=== PATIENT | female | born 1965 | race Caucasian/White ===

== ENCOUNTER 2023-01-08 09:22 | Outpatient (CLI) | payer OTHER, SELFPAY ==
--- NOTE | 2023-01-08 09:57 | W.ANESCHARGE ---
Anesthesia Charges Start Date/Time Anesthesia Start Date: 01/08/23 Anesthesia Start Time: 10:20 Stop Date/Time Anesthesia Stop Date: 01/08/23 Anesthesia Stop Time: 10:53
--- NOTE | 2023-01-08 10:56 | W.ANESCHARGE ---
Anesthesia Charges Start Date/Time Anesthesia Start Date: 01/08/23 Anesthesia Start Time: 10:20 Stop Date/Time Anesthesia Stop Date: 01/08/23 Anesthesia Stop Time: 10:53
== END 2023-01-08 09:23 | disposition home or self-care (01) ==
LOC: OP CLINIC 09:25
PROVIDERS: PCP Family Medicine; Visit Provider Internal Medicine Gastroenterology
DX: Z12.11 Encounter for screening for malignant neoplasm of colon (principal); K63.5 Polyp of colon; K57.30 Diverticulosis of large intestine without perforation or abscess without bleeding; K62.1 Rectal polyp; Q43.8 Other specified congenital malformations of intestine; Z86.010 Personal history of colon polyps; Z80.0 Family history of malignant neoplasm of digestive organs
CPT/HCPCS: 45380; 45385; 811; 812; 88305; J2704

== ENCOUNTER 2023-04-03 06:16 | Inpatient (IN) | payer OTHER, SELFPAY ==
[2023-04-03] VITALS (33 sets, daily range): BP systolic 96–137; BP diastolic 37–87; PULSE 60–123; RESP 16–18; TEMP 36.4–37.7; O2SAT 92–100; BMI 26.3
[2023-04-03] MEDS: LACTATED RINGERS 1000 ML 1,000 ML 100 ML IV ×2 (07:13→10:38)
[2023-04-03] MEDS: SODIUM CHLORIDE 0.9 % (FLUSH) 10 ML SYRINGE IVF (07:13)
--- NOTE | 2023-04-03 07:30 | CRLHL7_ITS ---
For Patients: As a result of the Century Cures Act, medical imaging exams and procedure reports are released immediately into your electronic medical record. You may view this report before your referring provider. If you have questions, please contact your health care provider. HISTORY: 57-year-old female. Left breast cancer. TECHNIQUE: Following lidocaine injection, 1.03 millicuries of [id number] sulfur colloid was injected in the left breast for sentinel lymph node localization. Images were not obtained. Dictated by Jordan Plascencia MD @ 04/03/2023 9:02:51 AM (Electronically Signed)
[2023-04-03] MEDS: CEFAZOLIN 2 GM INJ IVP (10:05)
[2023-04-03] MEDS: ISOSULFAN BLUE 5 ML VIAL INJECTION (10:20)
--- NOTE | 2023-04-03 11:16 | W.PM.NB ---
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 Images saved: Yes Medications given in 5ml increments after negative aspiration: Marcaine %: 0.25 mL: 30 Needle gauge: 20 and Exparel mL: 10 Needle gauge: 20 Patient tolerated procedure well: Yes Block Charges Block Charge (with Pro Fee): Intercostal Nerve Block Use of Ultrasound Machine for Block: Yes- US Guidance/pain block
--- NOTE | 2023-04-03 11:42 | SUR.OPER ---
Tried to update family per Dr. Rothman. Left a voicemail.
[2023-04-03] MEDS: HYDROmorphone 0.5 mg/0.5 ml inj IVP ×2 (13:47→15:22)
--- NOTE | 2023-04-03 13:50 | W.ANESCHARGE ---
Anesthesia Charges Start Date/Time Anesthesia Start Date: 04/03/23 Anesthesia Start Time: 09:58 Stop Date/Time Anesthesia Stop Date: 04/03/23 Anesthesia Stop Time: 13:44
--- NOTE | 2023-04-03 13:52 | P.GSOP_ITS ---
Operative Note Date of procedure: 04/03/23 Pre-op diagnosis: Invasive lobular carcinoma, left breast Post-op diagnosis: Same Type of Procedure: 1. Bilateral mastectomy 2. Left sentinel lymph node biopsy Indications: Patient is a 57-year-old female with new diagnosis invasive lobular carcinoma, ER positive/FL positive/HER2 negative. Workup demonstrated stage II A disease with the tumor measuring 4.8 cm in size. Different treatment options were reviewed with the patient, please see consultation note for full discussion. Risks and benefits of operative intervention were discussed at length with the patient. Risks included, but were not limited to: Bleeding, infection, risk of damage to surrounding structures, the risk of lymphedema with removal of any nod es, and possible need for an axillary dissection. Risk of injury to surrounding nerves within the axilla or vascular structures which may result in permanent injury. All questions and concerns were addressed with patient agreeing to proceed. Procedure Description: Prior to arrival in the operating room, I injected a radiocolloid tracer to help with identification of the sentinel node. The patient was brought to the operating room and prepped and draped in standard sterile fashion. A timeout was taken for patient safety. I injected 3 cc of l ymphazurin blue in the patient's left breast. The operative field was then prepped and draped in standard fashion. I performed a vertical triangular incision around the nipple on the right breast as marked by Dr. Avina and started by dissecting the subcutaneous tissues using electrocautery. The breast flaps were created circumferentially, dissecting all the breast tissue off of the overlying skin superiorly up to the clavicle, medially to the lateral border of the sternum, laterally out to the latissimus and inferiorly to the inferior aspect of the breast fold. Once flaps had been raised in all 4 directions down to the level of the fascia, the breast was taken off of the chest wall. I included the fascia in my dissection. The underlying pectoralis muscle was inspected and hemostasis was appreciated. The breast was removed through the incision and marked with a stitch at 12 o clock. It was sent to pathology for immediate assessment, with only benign findings. The operative field was gently irrigated. Hemostasis was assured with electrocautery. A 15 Malaysian Maurilio drain was placed a long the lateral wall of the breast and secured with a drain stitch. The incision was brought together in an inverted T shape pattern with interrupted 3-0 Vicryl suture and a running 4-0 Monocryl subcuticular stitch. Attention was then turned to the left breast, which contained the known tumor. I made a triangular incision around the nipple as marked by Dr. Avina and started by dissecting the subcutaneous tissues using electrocautery. The breast flaps were created circumferentially, dissecting all the breast tissue off of the overlying skin superiorly up to the clavicle, medially to the lateral border of the sternum, laterally out to the latissimus and inferiorly to the inferior aspect of the breast fold. The tumor was easily palpated on the anterior surface of the breast tissue at the 2 o'clock position. Once flaps had been raised in all 4 directions down to the level of the fascia, the breast was taken off of the chest wall. I included the fascia in my dissection. The breast was removed through the incision and marked with a short stitch at 12 o clock. It was sent to pathology for immediate assessment. The tumor was able to be readily identified and appeared to be abutting the anterior surface. The recommendation was for additional tissue excision. The area on the anterior flap where the underlying tumor was palpated had been previously marked with a marking pen by myself at the beginning of the procedure. There was very minimal subcutaneous tissue at this area, so the decision was made to remove any remaining subcutaneous tissue and overlying skin. This was sent to pathology as a re-excision for margins, with no obvious tumor seen in the specimen. I then proceeded to take out the sentinel lymph nodes through the left mastectomy incision. Using the Neoprobe I identified the sentinel lymph nodes. All nodes were grossly normal. Nodes were passed off the field as sentinel nodes, 1, and 2 for a frozen evaluation, which came back as no evidence of malignancy. Background counts in the axilla were low. The operative field was then gently irrigated. Hemostasis was assured with electrocautery. Two pieces of Surgicel were placed in the left axilla. A 15 Malaysian Maurilio drain was placed and secured with a drain stitch. The incision was then brought together with interrupted 3 0 Vicryl and running 4-0 Monocryl subcuticular stitch. Due to the skin that required removal the incision was brought together in an X shape. All counts were correct at the end of the case. Patient tolerated procedure well without immediate complication. Patient was transferred to PACU in stable condition. Findings: Bilateral mastectomy. Left breast tumor abutting subcutaneous tissue, requiring re-excision of skin. Margins appeared negative at the end of the case. Two bilateral [address] [place] node biopsy was performed using Isosulfan blue dye and radiotracer; all identified blue and significantly radioactive nodes as well as any additional suspicious nodes were removed. Pathology showed no evidence of malignancy on frozen analysis. Anesthesia: GETA Surgeon: Delphine Rothman MD Estimated blood loss (mL): 50 Additional Specimen Information: 1. Right breast 2. Left breast 3. Left sentinel lymph node 1 4. Left sentinel lymph node 2 Condition: stable Disposition: PACU
[2023-04-03] MEDS: fentaNYL 100 MCG/2 ML inj 50 MCG IVP ×2 (14:02→14:07)
--- NOTE | 2023-04-03 14:42 | PC.NURSE ---
PATIENT REPORTING VERY BAD ITCHING. BENADRYL WAS GIVEN BY BAILEE RIBERA CRNA. ITCHING CONTINUED AND BAILEE RIBERA ASSESSED TO DETERMINE TREATMENT.
--- NOTE | 2023-04-03 14:56 | PC.NURSE ---
BAILEE RIBERA PROVIDED TORDAL DUE TO THE PATIENTS REACTION OF ITCHING TO FENTANYL AND SAID SHE CAN GO TO [facility]. ITCHING HAS SUBSIDED.
--- NOTE | 2023-04-03 15:09 | PC.NURSE ---
COMMUNICATED TO [facility] NURSING THAT ITCHING WAS REPORTED AFTER DILAUDID AND FENTANYL AND ANESTHESIA DID NOT WANT TO GIVE ANY FURTHER NARCOTICS TO PATIENT AND OKAYED TRANSFER TO [facility]. DAIN SCORE MET CRITERIA FOR DISCHARGE.
[2023-04-03] MEDS: LACTATED RINGERS 1000 ML 1,000 ML 125 ML IV (15:22)
--- NOTE | 2023-04-03 16:49 | PM.GSPN ---
Subjective Subjective Date Seen: 04/03/23 Interval history: Patient reporting some pain on the left side of her chest. No pain on the right side. She is having a significant amount of anxiety and shortness of breath when she gets up and moves around. She was able to get up and go to the commode. After coming back from the commode she had a significant amount of swelling in her right breast and her drain on the right side began to rapidly fill. Also reporting a ?Charley horse? in her right calf. Exam Narrative: Exam Narrative: General: Tachycardic, anxious and in acute distress Chest: Left breast flaps viable, incisions clean/dry/intact. Some dark sanguinous output from drain. Right breast with large hematoma, some ecchymoses of the skin flap and drain with significant amount of sanguinous output. Const: Vital Signs, click to edit/add: Vital Signs - 24 hr 04/03/23 07:22 04/03/23 13:40 04/03/23 13:45 Temperature 98.8 F 97.6 F Pulse Rate 72 68 64 Respiratory Rate 16 16 16 Blood Pressure 128/67 131/69 126/74 Pulse Oximetry 96 95 96 Oxygen Delivery Me thod Room Air Room Air 04/03/23 13:50 04/03/23 13:55 04/03/23 14:00 Temperature Pulse Rate 65 60 61 Respiratory Rate 16 16 16 Blood Pressure 124/78 137/65 133/65 Pulse Oximetry 96 96 93 Oxygen Delivery Me thod Room Air 04/03/23 14:05 04/03/23 14:10 04/03/23 14:15 Temperature 98.4 F Pulse Rate 63 68 78 Respiratory Rate 16 16 16 Blood Pressure 123/65 115/68 113/51 L Pulse Oximetry 93 94 92 Oxygen Delivery Me thod Room Air 04/03/23 14:20 04/03/23 14:25 04/03/23 14:30 Temperature Pulse Rate 82 76 76 Respiratory Rate 16 16 16 Blood Pressure 109/60 109/61 108/78 Pulse Oximetry 100 100 95 Oxygen Delivery Me thod Room Air 04/03/23 14:35 04/03/23 14:40 04/03/23 14:45 Temperature 99.8 F H Pulse Rate 78 79 79 Respiratory Rate 16 16 16 Blood Pressure 117/62 118/83 118/83 Pulse Oximetry 95 97 97 Oxygen Delivery Me thod Room Air 04/03/23 14:50 04/03/23 14:55 Temperature 98.6 F Pulse Rate 68 72 Respiratory Rate 16 16 Blood Pressure 111/60 114/62 Pulse Oximetry 98 98 Oxygen Delivery Me thod Room Air Room Air Progress Note: A&P Assessment and plan (1) Postoperative hematoma: Status: Acute Assessment and Plan: Patient is postop day 0 bilateral mastectomy and left sentinel lymph node biopsy. After getting up and moving around she has had rapid development of right-sided hematoma and significant amount of sanguinous output from her drain. Concern for postop hematoma and active bleeding, with recommendations to go to the operating room emergently for washout and evaluation.
--- NOTE | 2023-04-03 18:45 | PM.GSPRC ---
Operative Note Date of procedure: 04/03/23 Pre-op diagnosis: Postop hematoma, right breast Post-op diagnosis: Same Type of Procedure: Incision and drainage right breast hematoma Indications: Patient is a 57-year-old female who went to the operating room for a bilateral mastectomy with left sentinel node for invasive lobular carcinoma. Postoperatively she developed significant swelling and bloody drainage from the right breast, concerning for active bleeding and large hematoma. Risks and benefits of going to the operating room were discussed at length with her and the patient. Risks included, but were not limited to: Bleeding, infection, risk of damage to surrounding structures and possible need for additional procedures. All questions and concerns were addressed with patient agreeing to proceed. Procedure Description: After discussing the risks and benefits of the procedure, the patient signed informed consent.? The operative site was marked and the patient was brought to the operating room and placed on the operating table in supine position.? Care was taken to pad the patient's pressure points.?? The patient was then given sedation by anesthesia.?? The operative site was then prepped and draped in the usual sterile fashion.? A time-out was then performed. Previous incisions to the right breast were incised. The interrupted 3-0 Vicryl subdermal sutures were cut. A large, approximately 300 mL hematoma was within the chest wall. This was evacuated. The cavity was irrigated with warm saline. A small amount of bleeding was seen on and artery on the lateral chest wall. This was ligated with 3-0 Vicryl ties. There were a few points of muscle bleeding, which was controlled with electrocautery. After hemostasis was assured Carmine was placed within the cavity. The 15 Macedonian Maurilio drain was left within the chest wall cavity. The incisions were closed in several layers of interrupted 3 0 Vicryl and running 4-0 Monocryl suture. Steri-Strips were applied over top. Sterile dressings were then applied. ? The patient was then woken and transported to the recovery area in stable condition. ? The patient tolerated the procedure well. Findings: Large hematoma of the right chest. A few areas of muscle bleeding cauterized. One small bleeding vessel on the lateral chest wall was ligated with 3 0 Vicryl. Anesthesia: MAC Surgeon: Delphine Rothman MD Estimated blood loss (mL): 5 Condition: stable Disposition: floor
--- NOTE | 2023-04-03 18:50 | W.ANESCHARGE ---
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
--- NOTE | 2023-04-03 18:54 | CRLHL7_ITS ---
For Patients: As a result of the Century Cures Act, medical imaging exams and procedure reports are released immediately into your electronic medical record. You may view this report before your referring provider. If you have questions, please contact your health care provider. INDICATION: Right calf pain. Post surgery. COMPARISON: None available. FINDINGS: Ultrasound of the venous drainage of the right lower extremity shows no evidence of deep venous thrombosis. There is normal antegrade flow from the posterior tibial and popliteal veins superiorly through the common femoral vein. There is normal augmentation and compressibility of these veins. The left common femoral vein is widely patent. IMPRESSION: No evidence of deep venous thrombosis on ultrasound examination of the right lower extremity. Dictated by Tony Martinez MD @ 04/03/2023 7:48:04 PM (Electronically Signed)
--- NOTE | 2023-04-03 20:14 | PC.NURSE ---
PATIENT RETURNED FROM SURGERY INITIALLY AT 1455. AT THAT TIME PATIENT REPORTING 6-7/10 PAIN TO BILATERAL BREASTS. PATIENT ALSO REPORTING CONTINUED ITCHING, ALTHOUGH IMPROVED. ADMINISTERED DILAUDID 0.5MG IV WITH IMPROVEMENT TO 4/10. AT 1600, PATIENT UP TO [facility] TO VOID AND HAD 400ML URINE OUTPUT WITH BLUE URINE. PATIENT DID REPORT FEELING DIZZY WHEN GETTING UP. WHEN RETURNING TO BED, PATIENT REPORTED HAVING DYSPNEA AND SOB ALONG WITH RIGHT CALF PAIN. DR. MENDIETA TO BEDSIDE AND RIGHT BREAST NOTED TO BE EDEMATOUS AND RIGHT BREAST ELLE FULL OF BLOOD. RIGHT BREAST ELLE HAD MINIMAL BLOOD OUTPUT [facility] DRESSING DC'D PER MD AND PATIENT HAD 200 BLOODY OUTPUT IN 30 MINUTES. AND DAUGHTER AT BEDSIDE AND DR. MENDIETA DISCUSSED RETURNING TO SURGERY TO DRAIN RIGHT BREAST. PATIENT TO SURGERY AT 1710. RETURNED FROM SURGERY AGAIN AT 1840. PATIENT DROWSY AND ON 3L O2 PER NC UPON RETURN. DRESSINGS CDI AND JPx2 INTACT WITH SMALL AMT BLOODY DRAINAGE. RLE ULTRASOUND COMPLETED FOR RIGHT CALF PAIN UPON RETURN FROM SURGERY. DENIED PAIN.
[2023-04-03] MEDS: KETOROLAC 15 MG/ML inj IVP (21:07)
[2023-04-03] MEDS: OXYCODONE 5 MG TABLET PO (21:07)
[2023-04-03] MEDS: MELATONIN 3 MG TABLET 6 MG PO (21:07)
[2023-04-04] MEDS: LACTATED RINGERS 1000 ML 1,000 ML 125 ML IV (01:00)
[2023-04-04] MEDS: OXYCODONE 5 MG TABLET PO ×5 (01:00→14:36)
[2023-04-04] MEDS: MORPHINE 2 MG/ML inj IVP (01:00)
[2023-04-04 03:00] VITALS: BP 116/62; PULSE 72; RESP 16; TEMP 36.8; O2SAT 97
[2023-04-04] MEDS: ACETAMINOPHEN 325 MG TABLET 650 MG PO ×4 (03:15→21:17)
[2023-04-04] MEDS: KETOROLAC 15 MG/ML inj IVP ×2 (03:15→21:17)
[2023-04-04] MEDS: diphenhydrAMINE 50 MG/ML inj IVP ×2 (03:15→10:13)
--- NOTE | 2023-04-04 06:27 | PC.NURSE ---
SHIFT NOTE -: Pt A&O. Dressing/JEFFY wrap to chest is C/D/I, ELLE patent and stripped and drained Q4H. Active ice to sx site. PRN Oxycodone, Acetaminophen, Morphine and Toradol given for pain control with pt reporting adequate relief. PRN Benadryl given x1 for pt report of itching with pt reporting relief. IS to 2500. Weaned from 3L O2 to RA with oxygen saturations in the high 90's. Afebrile. Pt denies SOB, CP and N/V. Up 1 assist to the BR, reports minor dizziness, but steady on her feet.
[2023-04-04 07:00] VITALS: BP 110/49; PULSE 83; RESP 16; TEMP 36.8; O2SAT 98
--- NOTE | 2023-04-04 08:21 | P.GSPN_ITS ---
Subjective Subjective Date Seen: 04/04/23 Interval history: Patient is doing okay this morning. Is having pain in bilateral chest (left greater than right). This is controlled with IV pain medicine, she has not yet tried oral. She has been able to get up and go to the bathroom. She is feeling a little bit dizzy when she gets up. Has been tolerating some p.o. intake without nausea or vomiting. Exam Narrative: Exam Narrative: General: Alert and oriented, no acute distress Respiratory: Equal breath rise bilaterally, maintained on room air CV: Regular rhythm rate, well perfused Breast: Left breast incision with moderate amount of ecchymoses in upper outer quadrant, small amount of ecchymoses in left axilla. No concern for flap necrosis. No undrained hematoma or seroma appreciated. ELLE drain with minimal amount sanguinous output in bulb. Right breast incision with ecchymoses of the superior and inferior flap. Flaps are well perfused. Incision with Steri- Strips in place. No undrained seroma or hematoma. ELLE drain with minimal sanguinous output. Const: Vital Signs, click to edit/add: Vital Signs - 24 hr 04/03/23 13:40 04/03/23 13:45 04/03/23 13:50 Temperature 97.6 F Pulse Rate 68 64 65 Pulse Rate [Left P ulse Oximeter] Respiratory Rate 16 16 16 Blood Pressure 131/69 126/74 124/78 Blood Pressure [Ri ght Arm] Pulse Oximetry 95 96 96 Oxygen Delivery Me thod Room Air Oxygen Flow Rate 04/03/23 13:55 04/03/23 14:00 04/03/23 14:05 Temperature Pulse Rate 60 61 63 Pulse Rate [Left P ulse Oximeter] Respiratory Rate 16 16 16 Blood Pressure 137/65 133/65 123/65 Blood Pressure [Ri ght Arm] Pulse Oximetry 96 93 93 Oxygen Delivery Me thod Room Air Oxygen Flow Rate 04/03/23 14:10 04/03/23 14:15 04/03/23 14:20 Temperature 98.4 F Pulse Rate 68 78 82 Pulse Rate [Left P ulse Oximeter] Respiratory Rate 16 16 16 Blood Pressure 115/68 113/51 L 109/60 Blood Pressure [Ri ght Arm] Pulse Oximetry 94 92 100 Oxygen Delivery Me thod Room Air Oxygen Flow Rate 04/03/23 14:25 04/03/23 14:30 04/03/23 14:35 Temperature Pulse Rate 76 76 78 Pulse Rate [Left P ulse Oximeter] Respiratory Rate 16 16 16 Blood Pressure 109/61 108/78 117/62 Blood Pressure [Ri ght Arm] Pulse Oximetry 100 95 95 Oxygen Delivery Me thod Room Air Oxygen Flow Rate 04/03/23 14:40 04/03/23 14:45 04/03/23 14:50 Temperature 99.8 F H Pulse Rate 79 79 68 Pulse Rate [Left P ulse Oximeter] Respiratory Rate 16 16 16 Blood Pressure 118/83 118/83 111/60 Blood Pressure [Ri ght Arm] Pulse Oximetry 97 97 98 Oxygen Delivery Me thod Room Air Room Air Oxygen Flow Rate 04/03/23 14:55 04/03/23 15:00 04/03/23 15:15 Temperature 98.6 F 98.0 F 98.3 F Pulse Rate 72 84 Pulse Rate [Left P ulse Oximeter] 84 Respiratory Rate 16 16 16 Blood Pressure 114/62 Blood Pressure [Ri ght Arm] 114/56 L 105/87 Pulse Oximetry 98 96 Oxygen Delivery Me thod Room Air Room Air Room Air Oxygen Flow Rate 04/03/23 15:30 04/03/23 15:45 04/03/23 16:15 Temperature 98 F Pulse Rate Pulse Rate [Left P ulse Oximeter] 81 78 123 H Respiratory Rate 16 16 16 Blood Pressure Blood Pressure [Ri ght Arm] 112/47 L 109/55 L 99/58 L Pulse Oximetry 96 97 96 Oxygen Delivery Me thod Room Air Room Air Room Air Oxygen Flow Rate 04/03/23 16:20 04/03/23 16:30 04/03/23 17:00 Temperature 97.8 F Pulse Rate Pulse Rate [Left P ulse Oximeter] 75 80 90 Respiratory Rate 18 16 16 Blood Pressure Blood Pressure [Ri ght Arm] 96/37 L 100/70 100/78 Pulse Oximetry 98 98 98 Oxygen Delivery Me thod Nasal Cannula Nasal Cannula Nasal Cannula Oxygen Flow Rate 2 2 2 04/03/23 18:40 04/03/23 19:00 04/03/23 19:15 Temperature 97.7 F 98.0 F 97.8 F Pulse Rate Pulse Rate [Left P ulse Oximeter] 85 80 70 Respiratory Rate 16 16 16 Blood Pressure Blood Pressure [Ri ght Arm] 110/78 107/59 L 110/66 Pulse Oximetry 100 99 99 Oxygen Delivery Me thod OxyMask Nasal Cannula Nasal Cannula Oxygen Flow Rate 3 3 3 04/03/23 19:30 04/03/23 20:00 04/03/23 20:30 Temperature 97.9 F 97.8 F 98 F Pulse Rate Pulse Rate [Left P ulse Oximeter] 76 84 80 Respiratory Rate 18 18 16 Blood Pressure Blood Pressure [Ri ght Arm] 128/67 119/60 119/67 Pulse Oximetry 98 99 97 Oxygen Delivery Me thod Nasal Cannula Nasal Cannula Nasal Cannula Oxygen Flow Rate 2 2 2 04/03/23 21:00 04/03/23 23:00 04/04/23 03:00 Temperature 97.9 F 98.4 F 98.2 F Pulse Rate Pulse Rate [Left P ulse Oximeter] 79 82 72 Respiratory Rate 16 18 16 Blood Pressure Blood Pressure [Ri ght Arm] 119/73 112/55 L 116/62 Pulse Oximetry 96 97 97 Oxygen Delivery Me thod Nasal Cannula Room Air Room Air Oxygen Flow Rate 2 Labs/Imaging Labs Labs: CBC pending this morning. Progress Note: A&P Assessment and plan (1) Postoperative hematoma: Status: Acute (2) Invasive lobular carcinoma of breast in female: Status: Acute Plan Patient is postop day 1 bilateral mastectomy and left sentinel lymph node biopsy. Her postop course was complicated by bleeding requiring take back to the operating room for irrigation and hemostasis. Overnight drain output has been left breast (35), right breast (50) since midnight of sanguinous output. No concern for ongoing bleeding. She is having pain this morning, this is controlled with IV pain medicine. He has not yet gotten up and walked around. Tolerating regular diet. Will check a CBC this morning, expected to be lower given the bleeding yesterday evening. Patient is not yet ready for discharge, anticipate another day in the hospital. -regular diet -encourage p.o. pain medicine -DC IV fluid -encourage ambulation -SCDs for DVT prophylaxis, no chemical DVT prophylaxis given bleeding risk -continue to monitor ELLE output
[2023-04-04] MEDS: VENLAFAXINE ER 75 MG CAPSULE PO ×2 (08:41→17:35)
[2023-04-04] MEDS: methIMAzole 5 MG TABLET PO (08:41)
[2023-04-04 09:28] LABS: Basophils Absolute Auto 0.02 K/uL (0.00-0.30); Basophils Percent Auto 0.2 % (0.0-3.0); Eosinophils Absolute Auto 0.04 K/uL (0.00-0.50); Eosinophils Percent Auto 0.4 % (0.0-7.0); Hematocrit 32.2 % (33.0-51.0); Hemoglobin* 10.6 gm/dL (12.0-16.0); Immature Granulocytes Abs Auto 0.03 K/uL (0.00-0.30); Immature Granulocytes Pct Auto 0.3 %; Lymphocytes Absolute Auto 3.32 K/uL (0.90-2.90); Lymphocytes Percent Auto 32.4 % (20-44); Mean Corpuscular HGB Conc 33 gm/dL (32-36); Mean Corpuscular Hemoglobin 31 pg (26-34); Mean Corpuscular Volume 94 fL (80-100); Monocytes Percent Auto 5.9 % (0.0-11.0); Neutrophils Absolute Auto 6.24 K/uL (1.7-7.0); Neutrophils Percent Auto 60.8 % (42.0-72.0); Platelet Count* 244 K/uL (140-440); RDW Coefficient of Variation % 12.9 % (11.5-15.5); Red Blood Count 3.44 m/uL (4.00-5.20); White Blood Count* 10.26 K/uL (4.50-11.00)
[2023-04-04 09:49] LABS: Slide Review Reflex No
[2023-04-04 11:00] VITALS: BP 113/63; PULSE 78; RESP 16; TEMP 36.9; O2SAT 98
[2023-04-04] MEDS: DOCUSATE SODIUM 100 MG CAPSULE PO (14:58)
[2023-04-04] MEDS: polyethylene glycoL 3350 17 GM PACK PO (14:58)
[2023-04-04 15:45] VITALS: BP 119/56; PULSE 83; RESP 16; TEMP 36.9; O2SAT 96
--- NOTE | 2023-04-04 15:59 | PC.NURSE ---
End of shift: Patient alert and oriented x4. at bedside most of the day. Dressing/JEFFY wrap to chest is C/D/I, ELEL patent and stripped and drained. Active ice to site. PRN Oxycodone, Acetaminophen and Toradol given for pain control with pt reporting adequate relief. PRN Benadryl given x1 for pt report of itching with pt reporting relief. RA. Afebrile. Pt denies SOB, CP and N/V. Up 1 assist to the BR, reports minor dizziness after taking pain meds, but steady on her feet using standard walker for extra support.
[2023-04-04 19:05] VITALS: BP 103/56; PULSE 81; RESP 16; TEMP 36.5; O2SAT 96
[2023-04-04] MEDS: ALPRAZolam 0.25 MG TABLET PO (21:17)
[2023-04-04] MEDS: MELATONIN 3 MG TABLET 6 MG PO (21:17)
--- NOTE | 2023-04-04 22:12 | PC.NURSE ---
Shift [id number]- Patient complains of dizziness and attributes it to opioid pain medication. Patient declines need for pain medication throughout shift, except for tonight, and she is given non-opioid PRNs- see eMAR. She also states she was not able to sleep last night and talks with RN to make a sleep plan, which is done. ELLE bulb is stripped at 1900- 15mL right, 20mLs left- in adddition to amounts at 1500. She is tolerating eating without issue. Jacob band and bandages remain to chest.
[2023-04-04 23:30] VITALS: BP 108/56; PULSE 76; RESP 16; TEMP 36.6; O2SAT 95
[2023-04-05] MEDS: OXYCODONE 5 MG TABLET PO ×2 (01:58→09:37)
[2023-04-05] MEDS: ACETAMINOPHEN 325 MG TABLET 650 MG PO ×2 (01:59→09:37)
[2023-04-05 02:30] VITALS: BP 122/46; PULSE 70; RESP 16; TEMP 36.6; O2SAT 98
[2023-04-05] MEDS: KETOROLAC 15 MG/ML inj IVP (06:23)
--- NOTE | 2023-04-05 07:02 | PC.NURSE ---
Pt alert and oriented x3. Afebrile. Pt reports 5/10 pain muscular/superficial?chest, pain managed with PRN medications. Pt did report neck discomfort stating, ?my neck feels stiff and sore?, PRN pain medications were given, pillow position was adjusted, neck was inspected and palpated no lumps, bruising, or JVD was noted, and pt denied headache. Pt has two ELLE drains, one on right and left chest both are patent and draining, pt had 30 ml output in right drain and 20 ml in left drain overnight. Pt?s chest dressings CDI. Pt denies chest pain, SOB, and N/V. Pt is up Ind in room,?tolerating a regular diet, and voiding. Pt slept intermittently throughout night. ?
[2023-04-05 08:00] VITALS: BP 124/63; PULSE 77; RESP 16; TEMP 36.4; O2SAT 98
[2023-04-05] MEDS: DOCUSATE SODIUM 100 MG CAPSULE PO (09:36)
[2023-04-05] MEDS: methIMAzole 5 MG TABLET PO (09:36)
[2023-04-05] MEDS: VENLAFAXINE ER 75 MG CAPSULE PO (09:37)
--- NOTE | 2023-04-05 10:05 | P.DS_ITS ---
DS: Providers Provider Date Seen: 04/05/23 Date of admission: 04/03/23 06:16 Primary care physician: Maximus Peng MD Admitting Clinician: Delphine Rothman MD Attending Physician on discharge: Delphine Rothman MD DS: Summary Hospital Course Hospital Course: Patient was admitted to the hospital after a bilateral mastectomy and left sentinel lymph node biopsy for invasive lobular carcinoma. Her postop course was complicated by a hematoma on the right side, requiring return to the operating room and evacuation. Bilateral ELLE drains remained in place. At the time of discharge patient was tolerating a regular diet, ambulating without difficulty and pain was well controlled on oral medications. Time Spent with Patient Time attestation: Total time spent providing and/or coordinating discharge services: Exam Narrative: Exam Narrative: General: Alert and oriented, no acute distress Chest: Right flaps viable, some ecchymoses superior and inferior flaps. Steri- Strips remain in place. No undrained fluid collection within the cavity. ELLE drain remains in place with very minimal serosanguineous output. Left flap appears viable, minimal ecchymoses. ELLE drain with minimal serosanguineous output. Tenderness in the left axilla, no seroma or hematoma appreciated Const: Vital Signs, click to edit/add: Vital Signs - 24 hr 04/04/23 11:00 04/04/23 15:45 04/04/23 19:05 Temperature 98.5 F 98.5 F 97.7 F Pulse Rate [Left P ulse Oximeter] 78 83 81 Respiratory Rate 16 16 16 Blood Pressure [Ri ght Arm] 113/63 119/56 L 103/56 L Pulse Oximetry 98 96 96 Oxygen Delivery Me thod Room Air Room Air 04/04/23 23:30 04/04/23 23:30 04/05/23 02:30 Temperature 97.9 F 97.9 F Pulse Rate [Left P ulse Oximeter] 76 76 70 Respiratory Rate 16 16 16 Blood Pressure [Ri ght Arm] 108/56 L 122/46 L Pulse Oximetry 95 98 Oxygen Delivery Me thod Room Air Room Air Discharge Plan Discharge Disposition: Home, Self-Care Date of Admission: 04/03/23 06:16 Attending Provider on Discharge: Delphine Rothman Primary Care Provider: Maximus Peng Condition: Improved Anticipated Discharge Date/Time: 04/05/23 10:01 Discharge Medications: New oxycodone 5 mg tablet 5 mg PO Q6H PRN (Reason: pain) Qty: 20 0RF senna 8.6 mg capsule 8.6 mg PO DAILY PRN (Reason: constipation) Qty: 90 0RF Continued alprazolam [Xanax] 0.25 mg tablet 0.25 mg PO BID PRN lansoprazole [Prevacid] 30 mg capsule,delayed release(DR/EC) 30 mg PO DAILY PRN melatonin 5 mg capsule 5 mg PO HS venlafaxine [Effexor XR] 75 mg capsule,extended release 24hr 75 mg PO BID methimazole 5 mg tablet 5 mg PO DAILY Discontinued progesterone micronized 100 mg capsule 100 mg PO HS Rx Instructions: off 7 days; repeat cycle estradiol 1 mg tablet 1 mg PO QDAY Rx Instructions: off 1 week; repeat cycle Discharge Orders: Discharge Order (Routine); Ordered 04/05/23 Ordered By: Delphine Rothman Patient Education: Deep Sedation (DC), Incision and Drainage (DC), Post- Operative Instructions: Breast Surgery Additional Instructions: You were prescribed a narcotic pain medication. In addition you may supplement with Tylenol and/or ibuprofen. Be sure to not exceed greater than 4 g of T ylenol in a 24 hour period. While on narcotic pain medicine please take stool softeners. A prescription of stool softeners has been sent to the pharmacy. Stop if having greater than 2 stools per day. He can shower starting today. Do not soak in a bath or swim for 2 weeks. Continue to wear an Jacob wrap as much as possible for the next 2 weeks. Monitor your ELLE drain output. An appointment will be made for follow-up with myself in 1 week to assess if they can be removed at that time. In order for the drains to be removed the output does need to be less than 20 mL per day. Activity Level: No strenuous activity Discharge Diet: Regular Follow Up Appointments: Delphine Rothman MD [Staff Physician] - (Please schedule 04/12/23 clinic) Forms: [employer] Text Info Instructions
[2023-04-05 10:56] VITALS: BP 114/62; PULSE 84; RESP 16; TEMP 36.6
--- NOTE | 2023-04-05 14:17 | PC.NURSE ---
Pt eval by Dr. Rothman. Spouse Terrell vigilant and supportive at bedside. Dressing removed for shower. Replaced dressing, 15 ml from left ELLE and 15ml from right ELLE. IV discontinued. Pt and spouse verbalized understanding of d/c diagnosis, home meds, pain management plan, f/up appt and sx to report urgently to physician. Teaching on dressing change and ELLE drains with spouse. Discharged via w/c to own home with personal belongings @ 1218 with spouse as transportation.
== END 2023-04-05 12:20 | disposition home or self-care (01) | DRG 580 ==
PROVIDERS: Admitting Provider Surgery; PCP Family Medicine; Visit Provider Surgery
PROC: 0HTV0ZZ Resection of Bilateral Breast, Open Approach (ICD-10-PCS; principal; 2023-04-03 09:15)
PROC: 0HTV0ZZ Resection of Bilateral Breast, Open Approach (ICD-10-PCS; 2023-04-03 09:15)
DX: C50.412 Malignant neoplasm of upper-outer quadrant of left female breast (principal); L76.32 Postprocedural hematoma of skin and subcutaneous tissue following other procedure; Z17.0 Estrogen receptor positive status [ER+]; R07.9 Chest pain, unspecified; E05.90 Thyrotoxicosis, unspecified without thyrotoxic crisis or storm; F32.A Depression, unspecified; F41.9 Anxiety disorder, unspecified; G89.18 Other acute postprocedural pain
CPT/HCPCS: 00400; 36415; 38792; 64420; 64421; 76942; 85025; 88305; 88307; 93971; 99140; A9270; A9541; C9290; J0330; J0690; J1100; J1170; J1200; J1885; J2270; J2310; J2405; J2704; J2710; J3010; J3490; J7120

== ENCOUNTER 2023-05-22 09:15 | Outpatient (RCR) | payer OTHER, SELFPAY ==
--- NOTE | 2023-05-08 07:45 | PC.NURSE ---
Received a call from [employer] reporting that authorization was not yet obtained for PET scan. Caller asked if ok to push the scan out 4 days. RN reviewed chart an as MD wants to see pt back after completion of radiation, RN gave approval to delay PET scan to wait for insurance approval. Will update MD and team.
--- NOTE | 2023-06-13 13:09 | ONC.NURNOTE ---
US and Pet CT results faxed to [facility].
[2023-07-24 19:16] LABS: Follicle Stimulating Hormone 33.2 IU/L; Luteinizing Hormone 26.6 IU/L
[2023-07-24 23:06] LABS: Estradiol Premenol Female <20 pg/mL
== END 2023-11-20 23:59 | disposition home or self-care (01) ==
PROVIDERS: Internal Medicine Hematology & Oncology; PCP Nurse Practitioner Family; Referring Provider Nurse Practitioner Family; Visit Provider Surgery
DX: C50.912 Malignant neoplasm of unspecified site of left female breast (principal); Z51.89 Encounter for other specified aftercare
CPT/HCPCS: 36415; 82670; 83001; 83002; 97110; 97140; 97161; 97164; 97165; 97535

== ENCOUNTER 2023-06-12 11:12 | Outpatient (CLI) | payer OTHER, SELFPAY ==
--- NOTE | 2023-06-12 11:15 | CRLHL7_ITS ---
For Patients: As a result of the Cures Act, medical imaging exams and procedure reports are released immediately into your electronic medical record. You may view this report before your referring provider. If you have questions, please contact your health care provider. RIGHT CHEST WALL ULTRASOUND CLINICAL HISTORY: Status post BILATERAL mastectomy two months ago for LEFT-sided lobular carcinoma. Recent CT PET scan showed uptake in the RIGHT chest wall. COMPARISON: CT-PET 05/31/2023 TECHNIQUE: Real-time ultrasound imaging of RIGHT chest wall with imaging documentation. Scanning was performed by both the technologist and the radiologist. FINDINGS: Evolving hematoma is present within the RIGHT chest wall soft tissues measuring 2.2 x 1.1 x 1.8 cm. The central area is fluid-filled and there is heterogeneous density in the periphery. No suspicious mass. IMPRESSION: Benign evolving postoperative hematoma in the RIGHT lateral chest wall just beneath the scar measuring 2.2 cm. No evidence of solid mass. RECOMMENDATIONS: Clinical follow-up. Results and recommendations were discussed with the patient at the time of the exam. BI-RADS Category 2: Benign A lay language report of this examination will be provided to the patient. Dictated by Jacob Robles MD @ 06/13/2023 10:40:15 AM /Dictated by: Jacob Robles MD @ 06/13/2023 10:40:00 AM (Electronically Signed)
== END 2023-06-12 11:13 | disposition home or self-care (01) ==
LOC: US 11:13
PROVIDERS: PCP Family Medicine; Visit Provider Internal Medicine Hematology & Oncology
DX: N63.10 Unspecified lump in the right breast, unspecified quadrant (principal)
CPT/HCPCS: 76642

== ENCOUNTER 2023-06-14 15:30 | Outpatient (CLI) | payer OTHER, SELFPAY ==
--- NOTE | 2023-06-14 15:30 | CRLHL7_ITS ---
For Patients: As a result of the Century Cures Act, medical imaging exams and procedure reports are released immediately into your electronic medical record. You may view this report before your referring provider. If you have questions, please contact your health care provider. DXA BONE MINERAL DENSITY STUDY Reason for exam: Malignant neoplasm of unspecified site. Current height (in): 68. Weight (lb): 168. Menopause age: 50. Ethnicity: White. 1. Have you had a previous hip or vertebral fracture? No. 2. Have you had any fractures during your adult life which did not result from significant trauma (e.g., auto accident)? No. 3. Did either of your parents have a hip fracture? No. 4. Do you smoke? No. 5. Have you ever taken Glucocorticoids? No. 6. Do you have rheumatoid arthritis? No. 7. Do you have secondary osteoporosis? No. 8. Do you drink 3 or more alcoholic drinks per day? Yes. 9. Are you being treated for osteoporosis? No. 10. Have you ever taken any of the following medications: Actonel, Evista, Fosamax, Miacalcin, Reclast, Boniva, Forteo, HRT (i.e., estrogen/hormone therapy), Protelos, Prolia, Vitamin D, Calcium, other ??? please specify. ANSWER: Yes, vitamin D. 11. Do you have any of the following medical conditions: Anorexia or bulimia, asthma or emphysema, end stage renal disease, hyperparathyroidism, any seizure disorders, cancer, inflammatory bowel diseases, hysterectomy, other ??? please specify. ANSWER: Yes, cancer. 12. What was your maximum height (inches)? 69. 13. Do you perform weight bearing exercise regularly? Yes. 14. Do you regularly consume dairy products? Yes. 15. Do you drink caffeinated beverages? Yes. If female: 16. At what age did your period start? 11. 17. Are you premenopausal? Yes. 18. How many full-term pregnancies have you had? 3. 19. Have you ever missed your period for more than 6 months in a row (not including or menopause)? No. TECHNIQUE: Bone mineral density study was performed using the [employer]. FINDINGS: The results of the study expressed as bone mineral density (BMD) are as follows: Lumbar spine L1 to L4: BMD: 1.250 g/cm2. T-score: 1.8. Z-score: 3.2 Neck Left: BMD: 0.950 g/cm2. T-score: 0.9. Z-score: 2.1 Right: BMD: 0.906 g/cm2. T-score: 0.5. Z-score: 1.7 Total Left: BMD: 1.052 g/cm2. T-score: 0.9. Z-score: 1.8 Right: BMD: 0.992 g/cm2. T-score: 0.4. Z-score: 1.3 IMPRESSION: Normal bone density. Jacob Robles M.D. Diagnostic Radiologist [email or web address] ROSANNE/ayo jj/Dictated by: Jacob Robles MD @ 06/15/2023 8:18:00 AM (Electronically Signed)
== END 2023-06-14 15:31 | disposition home or self-care (01) ==
LOC: RAD 15:31
PROVIDERS: PCP Family Medicine; Visit Provider Internal Medicine Hematology & Oncology
DX: C50.919 Malignant neoplasm of unspecified site of unspecified female breast (principal)
CPT/HCPCS: 77080

== ENCOUNTER 2023-10-23 09:00 | Outpatient (RCR) | payer OTHER, SELFPAY ==
[2023-10-23 09:58] LABS: Albumin* 4.7 g/dL (3.3-5.0)
[2023-10-23 10:01] LABS: Alanine Aminotransferase* 18 U/L (4-35); Alkaline Phosphatase* 80 U/L (40-150); Aspartate Amino Transferase* 23 U/L (12-35); Bilirubin Direct* 0.1 mg/dL (0.0-0.5); Bilirubin Total* 0.5 mg/dL (0.1-1.5); Total Protein* 8.3 g/dL (6.0-8.3)
== END 2023-10-23 23:59 | disposition home or self-care (01) ==
LOC: CCIC 09:00
PROVIDERS: PCP Family Medicine; Referring Provider Family Medicine; Visit Provider Internal Medicine Hematology & Oncology
DX: C50.912 Malignant neoplasm of unspecified site of left female breast (principal); Z17.0 Estrogen receptor positive status [ER+]; R23.2 Flushing; E03.9 Hypothyroidism, unspecified; G37.3 Acute transverse myelitis in demyelinating disease of central nervous system
CPT/HCPCS: 36415; 80076; 99203; 99204; 99205; 99212; 99213; 99214; 99215; G0463

== ENCOUNTER 2024-05-01 09:10 | Outpatient (RCR) | payer OTHER, SELFPAY ==
--- NOTE | 2023-12-13 14:22 | ONC.NURNOTE ---
Magnesium refilled by Pat Wills PA-C.
[2024-01-21 10:28] LABS: Albumin* 4.4 g/dL (3.3-5.0)
[2024-01-21 10:31] LABS: Alanine Aminotransferase* 17 U/L (4-35); Alkaline Phosphatase* 79 U/L (40-150); Aspartate Amino Transferase* 23 U/L (12-35); Bilirubin Direct* 0.1 mg/dL (0.0-0.5); Bilirubin Total* 0.5 mg/dL (0.1-1.5); Total Protein* 7.7 g/dL (6.0-8.3)
== END 2024-07-19 23:59 | disposition home or self-care (01) ==
LOC: CCIC 09:10
PROVIDERS: Internal Medicine Hematology & Oncology; PCP Nurse Practitioner Family; Referring Provider Family Medicine; Visit Provider Physician Assistant
DX: C50.912 Malignant neoplasm of unspecified site of left female breast (principal); Z17.0 Estrogen receptor positive status [ER+]; R23.2 Flushing; M79.2 Neuralgia and neuritis, unspecified; R68.82 Decreased libido; R07.89 Other chest pain
CPT/HCPCS: 36415; 80076; 99214; G0463

== ENCOUNTER 2024-11-17 09:30 | Outpatient (RCR) | payer OTHER, SELFPAY | END 2025-01-27 23:59 | disposition home or self-care (01) | LOC: CCIC 09:30 | PROVIDERS: PCP Nurse Practitioner Family; Visit Provider Internal Medicine Hematology & Oncology | DX: C50.912 Malignant neoplasm of unspecified site of left female breast (principal); Z17.0 Estrogen receptor positive status [ER+]; R23.2 Flushing; E05.90 Thyrotoxicosis, unspecified without thyrotoxic crisis or storm; Z90.13 Acquired absence of bilateral breasts and nipples | CPT/HCPCS: 99214; 99215; G0463 ==

== ENCOUNTER 2025-02-09 08:07 | Outpatient (RCR) | payer OTHER, SELFPAY ==
--- NOTE | 2025-03-12 16:12 | ONC.NURNOTE ---
Patient called with questions about mammograms. She had seen her PCP recently and was told that she still needs to do mammograms even after her bilateral mastectomy. Patient informed that she no longer qualifies for screening mammograms because she has no breast tissue left. If she had a lump or area of concerns, we would utilize ultrasound or some other form of imaging. Patient verbalizes understanding.
== END 2025-08-08 23:59 | disposition home or self-care (01) ==
LOC: CCIC 08:07
PROVIDERS: PCP Nurse Practitioner Family; Visit Provider Physician Assistant
DX: C50.912 Malignant neoplasm of unspecified site of left female breast (principal); Z17.0 Estrogen receptor positive status [ER+]; Z79.811 Long term (current) use of aromatase inhibitors; R23.2 Flushing; Z90.13 Acquired absence of bilateral breasts and nipples
CPT/HCPCS: 99214; G0463

== ENCOUNTER 2025-08-12 15:20 | Outpatient (CLI) | payer OTHER, SELFPAY ==
--- NOTE | 2025-08-12 15:30 | CRLHL7_ITS ---
For Patients: As a result of the Century Cures Act, medical imaging exams and procedure reports are released immediately into your electronic medical record. You may view this report before your referring provider. If you have questions, please contact your health care provider. DXA BONE MINERAL DENSITY STUDY Reason for exam: Long-term (current) use of aromatase inhibitors. Current height (in): 68. Weight (lb): 168. Menopause age: 50. Ethnicity: White. 1. Have you had a previous hip or vertebral fracture? No. 2. Have you had any fractures during your adult life which did not result from significant trauma (e.g., auto accident)? No. 3. Did either of your parents have a hip fracture? No. 4. Do you smoke? No. 5. Have you ever taken Glucocorticoids? Yes. 6. Do you have rheumatoid arthritis? No. 7. Do you have secondary osteoporosis? No. 8. Do you drink 3 or more alcoholic drinks per day? No. 9. Are you being treated for osteoporosis? No. 10. Have you ever taken any of the following medications: Actonel, Evista, Fosamax, Miacalcin, Reclast, Boniva, Forteo, HRT (i.e. estrogen/hormone therapy), Protelos, Prolia, Vitamin D, Calcium, other ??? please specify. ANSWER: Yes, Vitamin D and calcium. 11. Do you have any of the following medical conditions: Anorexia or bulimia, asthma or emphysema, end stage renal disease, hyperparathyroidism, any seizure disorders, cancer, inflammatory bowel diseases, hysterectomy, other ??? please specify. ANSWER: Yes, cancer. 12. What was your maximum height (inches)? 68. 13. Do you perform weight bearing exercise regularly? No. 14. Do you regularly consume dairy products? Yes. 15. Do you drink caffeinated beverages? Yes. 16. At what age did your period start? 11. 17. Are you premenopausal? Yes. 18. How many full-term pregnancies have you had? 3. 19. Have you ever missed your period for more than 6 months in a row (not including or menopause)? No. TECHNIQUE: Bone mineral density study was performed using the [employer]. FINDINGS: The results of the study expressed as bone mineral density (BMD) are as follows: Lumbar spine L1 to L4: BMD: 1.171 g/cm2. T-score: 1.1. Z-score: 2.6. Neck Left: BMD: 0.878 g/cm2. T-score: 0.3. Z-score: 1.6. Right: BMD: 0.852 g/cm2. T-score: 0.0. Z-score: 1.3. Total Left: BMD: 0.990 g/cm2. T-score: 0.4. Z-score: 1.4. Right: BMD: 0.973 g/cm2. T-score: 0.3. Z-score: 1.3. IMPRESSION: Normal bone density. *Comparison exams done prior to 03/2020 were performed on different unit, [employer]. COMPARISON: Compared with scan of 06/14/2023, the bone mineral density has decreased by 6.3 percent at the spine and decreased by 4.0 percent at the hip. Jacob Robles M.D. Diagnostic Radiologist [email or web address] ROSANNE/ayo rollins/Dictated by: Jacob Robles MD @ 08/13/2025 9:00:00 AM (Electronically Signed)
== END 2025-08-12 15:21 | disposition home or self-care (01) ==
LOC: RAD 15:20
PROVIDERS: PCP Nurse Practitioner Family; Visit Provider Internal Medicine Hematology & Oncology
DX: C50.919 Malignant neoplasm of unspecified site of unspecified female breast (principal); Z79.811 Long term (current) use of aromatase inhibitors
CPT/HCPCS: 77080